=== PATIENT | male | born 1995 | race Hispanic/Latino ===

== ENCOUNTER 2019-03-08 19:09 | Emergency (ER) | payer SELFPAY ==
[2019-03-08] MEDS ORDERED: LIDOCAINE 1% MPF 30 ML VIAL ONE (19:23)
[2019-03-08] MEDS ORDERED: HYDROCODONE/APAP 10/325 TAB ONE (19:27)
[2019-03-08] MEDS ORDERED: SMZ./TMP. 800/160 MG TABLET ONE (19:45)
--- NOTE | 2019-03-08 19:48 | ER ---
Nurse's Notes [facility] Name: Tirso Guerra Age: 23 yrs Sex: Male : 1995 Arrival Date: 03/08/2019 Time: 19:11 Bed 7 Private MD: Diagnosis: Abscess left buttock Presentation: 03/08 19:22 Presenting complaint: Patient states: Abscess to left buttock x 3 days; Unable to lay lp1 flat or sit due to pain. Transition of care: patient was not received from another setting of care. Onset of symptoms was March 08, 2019. Risk Assessment: Do you want to hurt yourself or someone else? Patient reports no desire to harm self or others. Initial Sepsis Screen: Does the patient meet any 2 criteria? No. Patient's initial sepsis screen is negative. Does the patient have a suspected source of infection? No. Patient's initial sepsis screen is negative. Care prior to arrival: None. 19:22 Method Of Arrival: Ambulatory lp1 19:22 Acuity: KI 4 lp1 Historical: - Allergies: 19:23 No Known Allergies; lp1 - Home Meds: 19:23 None [Active]; lp1 - PMHx: 19:23 None; lp1 - PSHx: 19:23 None; lp1 - Immunization history:: Adult Immunizations up to date. - Social history:: Smoking status: Patient/guardian denies using tobacco. - Ebola Screening: : No symptoms or risks identified at this time. Screenin:23 Abuse screen: Denies threats or abuse. Denies injuries from another. Nutritional lp1 screening: No deficits noted. Tuberculosis screening: No symptoms or risk factors identified. Fall Risk None identified. Assessment: 19:29 General: Appears in no apparent distress. uncomfortable, Behavior is calm, cooperative, tl1 appropriate for age. Pain: Complains of pain in gluteal cleft Quality of pain is described as aching, pressure, sharp, tender, Pain began 2-3 days ago. Is continuous. Neuro: Level of Consciousness is awake, alert, obeys commands, Oriented to person, place, time, situation. Cardiovascular: No deficits noted. Denies chest pain. Respiratory: Airway is patent Trachea midline Respiratory effort is even, unlabored, Respiratory pattern is regular, symmetrical, Breath sounds are clear bilaterally. GI: Abdomen is non-distended, Bowel sounds present X 4 quads. Abd is soft and non tender X 4 quads. : No signs and/or symptoms were reported regarding the genitourinary system. EENT: No signs and/or symptoms were reported regarding the EENT system. Derm: Abscess located on gluteal cleft and left gluteus joseph is golf ball sized, has no drainage, is hot to touch, is raised, Reports pain that is 10 out of 10 on a pain scale. Vital Signs: 19:23 BP 115 / 60; Pulse 107; Resp 18; Temp 98.5(O); Pulse Ox 98% on R/A; Weight 113.4 kg; lp1 Height 5 ft. 7 in. (170.18 cm); Pain 10/10; 19:52 BP 150 / 98; Pulse 94; Resp 17; Temp 98.5; Pulse Ox 98% ; Pain 6/10; tl1 19:23 Body Mass Index 39.16 (113.40 kg, 170.18 cm) lp1 ED Course: 19:11 Patient arrived in ED. mr 19:18 Ezra Ordonez MD is Attending Physician. pkl 19:23 Triage completed. lp1 19:23 Arm band placed on left wrist. lp1 19:25 Patient has correct armband on for positive identification. lp1 19:29 Melyssa Friend, MAURICIO is Primary Nurse. tl1 19:33 Assist provider with I \T\ D: of an abscess on left perirectal area Set up I\T\D tray. tl 1 Performed by Ezra Ordonez MD Culture sent to lab. Wound packed. iodoform gauze, Dressing with 4X4s, tape Patient tolerated well. 19:34 Patient did not have IV access during this emergency room visit. tl1 19:45 Diony Dodge MD is Referral Physician. pkl Administered Medications: 19:29 Drug: [place] 10 mg-325 mg 1 tabs Route: PO; tl1 19:54 Follow up: Response: No adverse reaction; Medication administered at discharge.; RASS: tl1 Alert and Calm (0) 19:46 Drug: Bactrim (160 mg-800 mg (DS) 1 tablet Route: PO; tl1 19:53 Follow up: Response: No adverse reaction; Medication administered at discharge. tl1 Outcome: 19:46 Discharge ordered by . pkl 19:53 Discharged to home ambulatory, with family. tl1 19:53 Condition: stable 19:53 Discharge instructions given to patient, family, Instructed on discharge instructions, follow up and referral plans. medication usage, wound care, Demonstrated understanding of instructions, follow-up care, medications, wound care, Prescriptions given X 2. 19:54 Patient left the ED. tl1 Signatures: Ezra Ordonez MD MD pkl RajeshPenelope Johanne Robertson RN RN lp1 Melyssa Friend RN RN tl1 Corrections: (The following items were deleted from the chart) 19:24 19:22 Presenting complaint: Patient states: Abscess to top of buttocks x 3 days; Unable lp1 to lay flat or sit due to pain lp1
--- NOTE | 2019-03-08 19:48 | EDPHYS ---
Physician Documentation [facility] Name: Tirso Guerra Age: 23 yrs Sex: Male : 1995 Arrival Date: 03/08/2019 Time: 19:11 Bed 7 Private MD: ED Physician Ezra Ordonez HPI: 03/08 19:27 This 23 yrs old Male presents to ER via Ambulatory with complaints of Abscess. pkl 19:27 Description: The affected area is large, approximately 4 cm(s), fluctuant, tense. pkl Onset: The symptoms/episode began/occurred 3 day(s) ago. Associated signs and symptoms: The patient has no apparent associated signs or symptoms. Historical: - Allergies: 19:23 No Known Allergies; lp1 - Home Meds: 19:23 None [Active]; lp1 - PMHx: 19:23 None; lp1 - PSHx: 19:23 None; lp1 - Immunization history:: Adult Immunizations up to date. - Social history:: Smoking status: Patient/guardian denies using tobacco. - Ebola Screening: : No symptoms or risks identified at this time. ROS: 19:27 Eyes: Negative for injury, pain, redness, and discharge, ENT: Negative for injury, pkl pain, and discharge, Neck: Negative for injury, pain, and swelling, Cardiovascular: Negative for chest pain, palpitations, and edema, Respiratory: Negative for shortness of breath, cough, wheezing, and pleuritic chest pain, Abdomen/GI: Negative for abdominal pain, nausea, vomiting, diarrhea, and constipation, Back: Negative for injury and pain, : Negative for injury, bleeding, discharge, and swelling, MS/Extremity: Negative for injury and deformity. 19:27 Skin: Positive for abscess, of the left buttock. 19:27 Neuro: Negative for altered mental status. Exam: 19:27 Head/Face: Normocephalic, atraumatic. Eyes: Pupils equal round and reactive to light, pkl extra-ocular motions intact. Lids and lashes normal. Conjunctiva and sclera are non-icteric and not injected. Cornea within normal limits. Periorbital areas with no swelling, redness, or edema. ENT: Nares patent. No nasal discharge, no septal abnormalities noted. Tympanic membranes are normal and external auditory canals are clear. Oropharynx with no redness, swelling, or masses, exudates, or evidence of obstruction, uvula midline. Mucous membranes moist. Neck: Trachea midline, no thyromegaly or masses palpated, and no cervical lymphadenopathy. Supple, full range of motion without nuchal rigidity, or vertebral point tenderness. No Meningismus. Chest/axilla: Normal chest wall appearance and motion. Nontender with no deformity. No lesions are appreciated. Cardiovascular: Regular rate and rhythm with a normal S1 and S2. No gallops, murmurs, or rubs. Normal PMI, no JVD. No pulse deficits. Respiratory: Lungs have equal breath sounds bilaterally, clear to auscultation and percussion. No rales, rhonchi or wheezes noted. No increased work of breathing, no retractions or nasal flaring. Abdomen/GI: Soft, non-tender, with normal bowel sounds. No distension or tympany. No guarding or rebound. No evidence of tenderness throughout. Back: No spinal tenderness. No costovertebral tenderness. Full range of motion. MS/ Extremity: Pulses equal, no cyanosis. Neurovascular intact. Full, normal range of motion. Neuro: Awake and alert, GCS 15, oriented to person, place, time, and situation. Cranial nerves II-XII grossly intact. Motor strength 5/5 in all extremities. Sensory grossly intact. Cerebellar exam normal. Normal gait. 19:27 Skin: abscess, that is large, approximately 4 cm(s), of the left buttock, with fluctuance, that is moderate. Vital Signs: 19:23 BP 115 / 60; Pulse 107; Resp 18; Temp 98.5(O); Pulse Ox 98% on R/A; Weight 113.4 kg; lp1 Height 5 ft. 7 in. (170.18 cm); Pain 10/10; 19:52 BP 150 / 98; Pulse 94; Resp 17; Temp 98.5; Pulse Ox 98% ; Pain 6/10; tl1 19:23 Body Mass Index 39.16 (113.40 kg, 170.18 cm) lp1 Procedures: 19:43 I \T\ D: Incision and drainage was performed for an abscess of the left buttock Prepped pkl with Betadine, Anesthetized with 5 ml's 1% Lidocaine. Incised with #11 blade. Drained large amount purulent fluid. Packed with iodoform gauze, Dressing: sterile 4x4 gauze, the patient tolerated the procedure well. MDM: 19:18 Patient medically screened. pkl 19:43 Data reviewed: vital signs, nurses notes. ED course: Advised to follow up with Dr. mónica Dodge ( Surgeon ) in 2 days. Patient understood instruction. 03/08 19:26 Order name: Wound Culture pk 03/08 19:33 Order name: Incision \T\ Drainage Setup; Complete Time: 19:33 tl1 Administered Medications: 19:29 Drug: [place] 10 mg-325 mg 1 tabs Route: PO; tl1 19:54 Follow up: Response: No adverse reaction; Medication administered at discharge.; RASS: tl1 Alert and Calm (0) 19:46 Drug: Bactrim (160 mg-800 mg (DS) 1 tablet Route: PO; tl1 19:53 Follow up: Response: No adverse reaction; Medication administered at discharge. tl1 Disposition: 03/08/19 19:46 Discharged to Home. Impression: Abscess left buttock. - Condition is Stable. - Prescriptions for Ultram 50 mg Oral Tablet - take 1 tablet by ORAL route every 8 hours As needed; 12 tablet. Bactrim DS 800- 160 mg Oral Tablet - take 1 tablet by ORAL route every 12 hours for 7 days; 14 tablet. - Medication Reconciliation Form, Thank You Letter, Antibiotic Education, Prescription Opioid Use, Work release form form. - Follow up: Diony Dodge MD; When: 2 - 3 days; Reason: Re-evaluation by your physician. - Problem is new. - Symptoms have improved. Signatures: Dispatcher [employer] EDPA Ezra Ordonez MD MD pkl Johanne Robertson, RN RN lp1 Melyssa Friend, RN RN tl1 Corrections: (The following items were deleted from the chart) 19:54 19:46 03/08/2019 19:46 Discharged to Home. Impression: Abscess left buttock. Condition tl1 is Stable. Forms are Medication Reconciliation Form, Thank You Letter, Antibiotic Education, Prescription Opioid Use. Follow up: Diony Dodge; When: 2 - 3 days; Reason: Re-evaluation by your physician. Problem is new. Symptoms have improved. pkl
== END 2019-03-08 19:54 | disposition home or self-care (01) ==
LOC: ER 19:09
PROC: 0J990ZZ Drainage of Buttock Subcutaneous Tissue and Fascia, Open Approach (ICD-10-PCS; principal; 2019-03-08)
DX: L02.31 Cutaneous abscess of buttock (principal)
CPT/HCPCS: 87070; 87205; 99284

== ENCOUNTER 2023-04-07 15:09 | Emergency (ER) | payer SELFPAY ==
--- NOTE | 2023-04-07 15:40 | ER ---
Nurse's Notes [facility] Name: Tirso Guerra Age: 27 yrs Sex: Male : 1995 Arrival Date: 04/07/2023 Time: 15:09 Bed 11 Private MD: Diagnosis: Cellulitis of right upper limb Presentation: 04/07 15:26 Chief complaint: Patient states: "I thought I got fiber glass in my hand on Wednesday so I iw tried to cut it out but was unsuccessful. This cyst developed on my right hand since . It looks swollen now and like there is pus in it. I went to an ER and they gave me a tetanus shot and Amoxicillin.". Coronavirus screen: Vaccine status: Patient reports being unvaccinated. Ebola Screen: No symptoms or risks identified at this time. Initial Sepsis Screen: Does the patient meet any 2 criteria? No. Patient's initial sepsis screen is negative. Does the patient have a suspected source of infection? No. Patient's initial sepsis screen is negative. Risk Assessment: Do you want to hurt yourself or someone else? Patient reports no desire to harm self or others. Onset of symptoms was April 07, 2023. 15:26 Method Of Arrival: Ambulatory iw 15:26 Acuity: KI 4 iw Historical: - Allergies: 15:28 No Known Allergies; iw - Home Meds: 15:28 None [Active]; iw - PMHx: 15:28 None; iw - PSHx: 15:28 None; iw - Immunization history:: Adult Immunizations up to date. - Social history:: Smoking status: Patient denies any tobacco usage or history of. Screenin:32 [facility] ED Fall Risk Assessment (Adult) History of falling in the last 3 months, mb9 including since admission No falls in past 3 months (0 pts) Confusion or Disorientation No (0 pts) Intoxicated or Sedated No (0 pts) Impaired Gait No (0 pts) Mobility Assist Device Used No (0 pt) Altered Elimination No (0 pt) Score/Fall Risk Level 0 - 2 = Low Risk Oriented to surroundings, Maintained a safe environment, Educated pt \\T\\ family on fall prevention, incl call for assistance when getting out of bed. Abuse screen: Denies threats or abuse. Nutritional screening: No deficits noted. Tuberculosis screening: No symptoms or risk factors identified. Assessment: 15:31 General: Appears in no apparent distress. Behavior is calm, cooperative. Pain: mb9 Complains of pain in right hand Pain does not radiate. Pain currently is 8 out of 10 on a pain scale. Quality of pain is described as aching, throbbing, Is continuous. Neuro: Abreu Agitation-Sedation Scale (RASS): 0 - Alert and Calm Level of Consciousness is awake, alert, obeys commands, Oriented to person, place, time, situation, Appropriate for age. Cardiovascular: Patient's skin is warm and dry. Respiratory: Airway is patent Respiratory effort is even, unlabored, Respiratory pattern is regular, symmetrical, Breath sounds are clear bilaterally. GI: Abdomen is round non-distended, Bowel sounds present X 4 quads. Patient currently denies nausea, vomiting. : No signs and/or symptoms were reported regarding the genitourinary system. EENT: No signs and/or symptoms were reported regarding the EENT system. Derm: Skin is pink, warm \\T\\ dry. Abscess located on right hand is dime sized, has no drainage, is red, is raised. Musculoskeletal: Range of motion: intact in all extremities. Vital Signs: 15:26 BP 119 / 83; Pulse 71; Resp 18; Temp 98.7; Pulse Ox 100% ; Weight 113.4 kg; Height 5 iw ft. 7 in. ; Pain 8/10; 15:26 Body Mass Index 39.16 (113.40 kg, 170.18 cm) iw 15:26 Pain Scale: Adult iw ED Course: 15:12 Patient arrived in ED. im 15:14 Francisco Valerio DO is Attending Physician. ms3 15:28 Triage completed. iw 15:28 Arm band placed on. iw 15:31 Penelope Bowen, MAURICIO is Primary Nurse. mb9 15:32 Bed in low position. Call light in reach. Side rails up X 1. Client placed on mb9 continuous cardiac and pulse oximetry monitoring. NIBP monitoring applied. 15:37 Jesus Arauz MD is Referral Physician. ms3 15:47 No provider procedures requiring assistance completed. Patient did not have IV access mb9 during this emergency room visit. Administered Medications: No medications were administered Medication: 15:32 VIS not applicable for this client. mb9 Outcome: 15:39 Discharge ordered by MD. ms3 15:47 Discharged to home ambulatory, mb9 15:47 Condition: stable 15:47 Discharge instructions given to patient, Instructed on discharge instructions, follow up and referral plans. Demonstrated understanding of instructions, follow-up care, medications, Prescriptions given X 1, 15:47 Patient left the ED. mb9 Signatures: Elizabeth Burden, RN RN iw Francisco Valerio DO DO ms3 Penelope Bowen RN RN mb9 Erika Mcdonald Corrections: (The following items were deleted from the chart) 15: 15:26 Chief complaint: Patient states: "I thought I got fiber glass in my hand on wednesday so I tried to cut it out but was unsuccessful. This cyst developed on my right hand since . It looks swollen now and like there is pus in it." iw
--- NOTE | 2023-04-07 15:40 | EDPHYS ---
Physician Documentation [facility] Name: Tirso Guerra Age: 27 yrs Sex: Male : 1995 Arrival Date: 04/07/2023 Time: 15:09 Bed 11 Private MD: ED Physician Francisco Valerio HPI: 04/07 15:49 This 27 yrs old Male presents to ER via Ambulatory with complaints of Hand ms3 Pain, Hand Swelling. 15:49 27-year-old male with no past medical history presents for right hand swelling. 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 Patient states since that time his symptoms have become worse. Patient states his right hand pain is an 8/10 and described as throbbing. Patient states he was seen in an emergency department in [place] and given a prescription which she did not fill. Patient states he took 1 amoxicillin at 6 AM this morning that he received from a friend.. Historical: - Allergies: 15:28 No Known Allergies; iw - Home Meds: 15:28 None [Active]; iw - PMHx: 15:28 None; iw - PSHx: 15:28 None; iw - Immunization history:: Adult Immunizations up to date. - Social history:: Smoking status: Patient denies any tobacco usage or history of. ROS: 15:49 Constitutional: Negative for fever, and chills. Neck: Negative for injury, pain, and ms3 swelling, Cardiovascular: Negative for chest pain, and palpitations. Respiratory: Negative for shortness of breath, cough, wheezing, and pleuritic chest pain, Abdomen/GI: Negative for abdominal pain, nausea, vomiting, diarrhea, and constipation, MS/Extremity: Negative for injury and deformity, 15:49 Skin: Positive for cellulitis, 15:49 All other systems are negative, Exam: 15:49 Constitutional: This is a well developed, well nourished patient who is awake, alert, ms3 and in no acute distress. Head/Face: Normocephalic, atraumatic. Neck: Trachea midline, no cervical lymphadenopathy. Supple, full range of motion without nuchal rigidity, or vertebral point tenderness. No Meningismus. Chest/axilla: Normal chest wall appearance and motion. Nontender with no deformity. Cardiovascular: Regular rate and rhythm with a normal S1 and S2. No gallops, murmurs, or rubs. Normal PMI, no JVD. No pulse deficits. Respiratory: Lungs have equal breath sounds bilaterally, clear to auscultation and percussion. No rales, rhonchi or wheezes noted. No increased work of breathing, no retractions or nasal flaring. Abdomen/GI: Soft, non-tender, with normal bowel sounds. No distension or tympany. No guarding or rebound. No evidence of tenderness throughout. 15:49 Skin: cellulitis, that is moderate, on the right hand, Vital Signs: 15:26 BP 119 / 83; Pulse 71; Resp 18; Temp 98.7; Pulse Ox 100% ; Weight 113.4 kg; Height 5 iw ft. 7 in. ; Pain 8/10; 15:26 Body Mass Index 39.16 (113.40 kg, 170.18 cm) iw 15:26 Pain Scale: Adult iw MDM: 15:37 Patient medically screened. ms3 15:49 Differential diagnosis: Cellulitis. Data reviewed: vital signs, nurses notes, and as a ms3 result, I will discharge patient. Counseling: I had a detailed discussion with the patient and/or guardian regarding the historical points, exam findings, and any diagnostic results supporting the discharge/admit diagnosis, the need for outpatient follow up, to return to the emergency department if symptoms worsen or persist or if there are any questions or concerns that arise at home. ED course: Discussed necessity to fill prescription with patient. Patient to follow-up with Dr. Arauz in 2 to 3 days. Patient understands agrees with plan. All questions were answered. Return precautions discussed include worsening symptoms, or any other concerns. Administered Medications: No medications were administered Disposition Summary: 04/07/23 15:39 Discharge Ordered Notes: Location: Home ms3 Condition: Stable ms3 Diagnosis - Cellulitis of right upper limb ms3 Followup: ms3 - With: Jesus Arauz MD - When: 2 - 3 days - Reason: Recheck today's complaints Discharge Instructions: - Discharge Summary Sheet ms3 - Cellulitis, Adult ms3 Forms: - Medication Reconciliation Form ms3 - Thank You Letter ms3 - Antibiotic Education ms3 - Prescription Opioid Use ms3 - Patient Portal Instructions ms3 - Leadership Thank You Letter ms3 Prescriptions: - Doxycycline Hyclate 100 mg Oral Tablet - take 1 tablet ORAL route every 12 hours; 20 tablet; Refills: 0, Product ms3 Selection Permitted Signatures: Elizabeth Burden RN RN iw Francisco Valerio DO DO ms3
[2023-04-07 15:52] VITALS: BP 119/83; TEMP 98.7; O2SAT 100
== END 2023-04-07 15:47 | disposition home or self-care (01) ==
LOC: ER 15:09
DX: L03.113 Cellulitis of right upper limb (principal)
CPT/HCPCS: 99283

== ENCOUNTER 2024-09-30 18:57 | Observation (INO) | payer SELFPAY ==
[2024-09-30 19:51] LABS: Absolute Eosinophils 0.3 K/uL (0-0.5); Absolute Lymphocytes (CBC) 1.5 K/uL (0.7-4.9); Absolute Monocytes 0.5 K/uL (0.1-1.3); Absolute Neutrophil 8.7 K/uL (1.8-8.0); Basophils % 0.3 % (0-1.3); Eosinophils % 2.3 % (0-4.4); Hematocrit 47.1 % (39.6-49.0); Hemoglobin 15.6 g/dL (13.6-17.9); Lymphocytes % 13.8 % (15.3-44.8); MCH 28.5 pg (27.0-35.0); MCHC 33.1 g/dL (32.0-36.0); MCV 86.2 fL (80-100); MPV 8.7 fL (7.6-11.3); Monocytes % 4.2 % (3.3-12.3); Neutrophils % 79.4 % (41.7-73.7); Platelets 210 thou/uL (152-406); RBC Red Blood Cell Count 5.46 M/uL (4.33-5.43); Red Cell Distribution Width 14.2 % (12.1-15.2)
[2024-09-30] MEDS ORDERED: FOLIC ACID 5 MG/ML VIAL ONE (19:52)
[2024-09-30] MEDS ORDERED: THIAMINE 200 MG/2 ML INJ ONE (19:52)
[2024-09-30] MEDS ORDERED: MULTIVITAMINS 10 ML VIAL (INJ) IV ONE (19:52)
[2024-09-30] MEDS ORDERED: NA CHLORIDE 0.9% 2,000 ML ONE (19:53)
[2024-09-30 19:59] LABS: PT Prothrombin Time 10.5 SECONDS (10-13.0); PTT, Activated Partial Thromb 25.7 SECONDS (27.2-37.4); Protime INR 0.92
[2024-09-30 20:09] LABS: ALT/SGPT 54 U/L (16-61); Albumin 3.5 g/dL (3.4-5.0); Alkaline Phosphatase 74 U/L (45-117); Anion Gap 8.8 mEq/L (5.0-15.0); BUN Blood Urea Nitrogen 12 mg/dL (7-18); Bicarbonate 29 mEq/L (21-32); Bilirubin Direct 0.2 mg/dL (0-0.2); Bilirubin Indirect, Calculated 0.8 mg/dL (0.2-0.8); Globulin 3.4 g/dL (2.3-3.5); Glomerular Filtration Rate 77 ml/min (=/>90); Glucose Level 155 mg/dL (74-106); Protein, Total 6.9 g/dL (6.4-8.2); Sodium Level 140 mEq/L (136-145)
[2024-09-30 20:15] LABS: AST/SGOT 40 U/L (15-37); Potassium 3.8 mEq/L (3.5-5.1)
[2024-09-30] MEDS ORDERED: LEVALBUTEROL 1.25 MG/3 ML NEB ONE (20:43)
[2024-09-30] MEDS ORDERED: NA CHLORIDE 0.9% 100 ML ONE (20:44)
[2024-09-30] MEDS ORDERED: NALOXONE HCL 2 MG/2 ML VIAL ONE (20:44)
--- NOTE | 2024-09-30 20:49 | RAD REPORT ---
EXAMINATION: ONE VIEW CHEST XR CLINICAL INDICATION: Male, 29 years old.,CHEST PAIN TECHNIQUE: Frontal chest projection is submitted. Examination is limited by patient positioning and t echnique. COMPARISON: No prior exam. FINDINGS: The lungs are grossly clear although suboptimal inspiratory effort somewhat limits evaluation. No pn eumothorax or sizable effusion. The heart is normal in size. Mediastinal contours are unremarkable. IMPRESSION: No acute intrathoracic abnormalities.
--- NOTE | 2024-09-30 22:14 | EDPHYS ---
Physician Documentation [facility] Name: Tirso Guerra Age: 29 yrs Sex: Male : 1995 Arrival Date: 09/30/2024 Time: 18:57 Bed 23 Private MD: ED Physician Art Moran HPI: 09/30 19:20 This 29 yrs old Male presents to ER via EMS with complaints of Drug Abuse. abby 19:20 The patient has shortness of breath with light activity. Onset: The symptoms/episode abby began/occurred just prior to arrival. Duration: The symptoms are continuous, but are steadily getting better. The patient's shortness of breath has no apparent modifying factors. took percocet, went unresponsive. Associated signs and symptoms: Pertinent positives: non-productive cough. Severity of symptoms: At their worst the symptoms were moderate incapacitating in the emergency department the symptoms have improved moderately. It is unknown whether or not the patient has had similar symptoms in the past. Historical: - Allergies: 19:08 No Known Allergies; cp4 - Immunization history:: Adult Immunizations up to date. - Infectious Disease History:: Denies. - Social history:: Smoking status: unknown. ROS: 19:20 Constitutional: Negative for fever, chills, and weight loss, Eyes: Negative for injury, abby pain, redness, and discharge, ENT: Negative for injury, pain, and discharge, Neck: Negative for injury, pain, and swelling, Cardiovascular: Negative for chest pain, palpitations, and edema, Abdomen/GI: Negative for abdominal pain, nausea, vomiting, diarrhea, and constipation, Back: Negative for injury and pain, : Negative for injury, bleeding, discharge, and swelling, MS/Extremity: Negative for injury and deformity, Skin: Negative for injury, rash, and discoloration, Neuro: Negative for headache, weakness, numbness, tingling, and seizure, Psych: Negative for depression, anxiety, suicide ideation, homicidal ideation, and hallucinations, Allergy/Immunology: Negative for hives, rash, and allergies, Endocrine: Negative for neck swelling, polydipsia, polyuria, polyphagia, and marked weight changes, Hematologic/Lymphatic: Negative for swollen nodes, abnormal bleeding, and unusual bruising, 19:20 Respiratory: Positive for cough, shortness of breath, respiratory arrest, Exam: 19:23 Constitutional: This is a well developed, well nourished patient who is awake, alert, abby and in no acute distress. Head/Face: Normocephalic, atraumatic. Eyes: Pupils equal round and reactive to light, extra-ocular motions intact. Lids and lashes normal. Conjunctiva and sclera are non-icteric and not injected. Cornea within normal limits. Periorbital areas with no swelling, redness, or edema. ENT: Nares patent. No nasal discharge, no septal abnormalities noted. Tympanic membranes are normal and external auditory canals are clear. Oropharynx with no redness, swelling, or masses, exudates, or evidence of obstruction, uvula midline. Mucous membranes moist. Neck: Trachea midline, no thyromegaly or masses palpated, and no cervical lymphadenopathy. Supple, full range of motion without nuchal rigidity, or vertebral point tenderness. No Meningismus. Chest/axilla: Normal chest wall appearance and motion. Nontender with no deformity. No lesions are appreciated. Cardiovascular: Regular rate and rhythm with a normal S1 and S2. No gallops, murmurs, or rubs. Normal PMI, no JVD. No pulse deficits. Respiratory: Lungs have equal breath sounds bilaterally, clear to auscultation and percussion. No rales, rhonchi or wheezes noted. No increased work of breathing, no retractions or nasal flaring. Abdomen/GI: Soft, non-tender, with normal bowel sounds. No distension or tympany. No guarding or rebound. No evidence of tenderness throughout. Back: No spinal tenderness. No costovertebral tenderness. Full range of motion. Skin: Warm, dry with normal turgor. Normal color with no rashes, no lesions, and no evidence of cellulitis. MS/ Extremity: Pulses equal, no cyanosis. Neurovascular intact. Full, normal range of motion., bilateral aka Neuro: Awake and alert, GCS 15, oriented to person, place, time, and situation. Cranial nerves II-XII grossly intact. Motor strength 5/5 in all extremities. Sensory grossly intact. Cerebellar exam normal. Normal gait. Psych: Awake, alert, with orientation to person, place and time. Behavior, mood, and affect are within normal limits. 19:23 Musculoskeletal/extremity: DVT Exam: No signs of deep vein thrombosis. no pain, no swelling, no tenderness, negative Homans' sign noted on exam, no appreciated bluish discoloration, no erythema, no increased warmth, 20:45 ECG was reviewed by the Attending Physician. [facility] Vital Signs: 19:20 BP 142 / 84; Pulse 106; Resp 20; Temp 98.4; Pulse Ox 92% on 3 lpm NC; Weight 113.4 kg; cp4 Height 5 ft. 7 in. ; Pain 0/10; 20:30 BP 119 / 79; Pulse 93; Resp 18; Pulse Ox 96% on 3 lpm NC; cp4 21:12 BP 116 / 78; Pulse 92; Resp 20; Pulse Ox 98% on 3 lpm NC; cp4 22:41 BP 118 / 80; Pulse 94; Resp 18; Pulse Ox 93% on 3 lpm NC; cp4 23:46 BP 125 / 75; Pulse 89; Resp 18; Pulse Ox 97% ; cp4 19:20 Body Mass Index 39.16 (113.40 kg, 170.18 cm) cp4 19:20 Pain Scale: Adult cp4 MDM: 19:10 Medical Screening Exam initiated [facility] 19:24 Differential diagnosis: asthma, Bronchitis CHF exacerbation, Myocardial Infarction abby pneumonia. Antibiotic administration: Not indicated. Differential Diagnosis altered mental status, sepsis, flu. Immunization status:. Data reviewed: vital signs, nurses notes, lab test result(s), EKG, radiologic studies, plain films. I considered the following discharge prescriptions or medication management in the emergency department Medications were administered in the Emergency Department. See MAR. Independent interpretation of the following test(s) in the Emergency Department EKG: See my EKG interpretation above. 09/30 19:11 Order name: Acetaminophen; Complete Time: 20:22 [facility] 09/30 19:11 Order name: Basic Metabolic Panel; Complete Time: 20:22 [facility] 09/30 19:11 Order name: CBC with Diff; Complete Time: 20:10 [facility] 09/30 19:11 Order name: ETOH Level; Complete Time: 20:10 [facility] 09/30 19:11 Order name: Hepatic Function; Complete Time: 20:22 [facility] 09/30 19:11 Order name: PT-INR; Complete Time: 20:10 [facility] 09/30 19:11 Order name: Ptt, Activated; Complete Time: 20:10 [facility] 09/30 19:11 Order name: Salicylate; Complete Time: 20:40 [facility] 09/30 19:11 Order name: Urinalysis w/ reflexes; Complete Time: 03:45 [facility] 09/30 19:11 Order name: Urine Drug Screen; Complete Time: 03:45 [facility] 09/30 23:54 Order name: Urinalysis w/ reflexes EDMS 09/30 19:11 Order name: Chest Single View XRAY; Complete Time: 22:08 [facility] 09/30 19:11 Order name: EKG - Nurse/Tech; Complete Time: 20:37 [facility] 09/30 19:11 Order name: IV Saline Lock; Complete Time: 19:46 [facility] 09/30 19:11 Order name: Labs collected and sent; Complete Time: 19:46 [facility] 09/30 19:11 Order name: Suicide Screening ([place]); Complete Time: 19:46 [facility] EC:45 Rate is 96 beats/min. Rhythm is regular. QRS [place] is Normal. [place] interval is normal. QRS abby interval is normal. QT interval is normal. No Q waves. T waves are Normal. No ST changes noted. Clinical impression: NSR w/ Non-specific ST/T Changes and No evidence of ischemia. Interpreted by me. Reviewed by me. Administered Medications: 19:59 Drug: NS 0.9% IV 1000 ml IV at 1000 ml once; to be given as a bolus over 60 minutes cp4 Route: IV; Rate: 1000 ml; Site: left hand; 10/01 04:50 Follow up: IV Status: Completed infusion cp4 09/30 19:59 Drug: Banana Bag - (Multivitamin IV 1 amp, NS 0.9% IV 1000 ml, Thiamine IV 100 mg, cp4 foLIC Acid IVPB 1 mg) IV at 500 ml/hr once Route: IV; Rate: 500 ml/hr; Site: left hand; 10/01 04:51 Follow up: IV Status: Completed infusion cp4 09/30 20:55 Drug: NARcan IVP 5 mg IVP at 1 mg/hr once Route: IVP; Rate: 1 mg/hr; Site: left hand; cp4 10/01 04:50 Follow up: Response: No adverse reaction cp4 09/30 20:55 Drug: Levalbuterol Inhalation 2.5 mg Inhalation once Route: Inhalation; cp4 Disposition Summary: 09/30/24 22:14 Hospitalization Ordered Notes: Hospitalization Status: Observation [facility] Provider: Patrice Mg cha Condition: Fair abby Problem: new abby Symptoms: have improved abby Bed/Room Type: Standard abby Location: [facility] ER HOLD(09/30/24 22:20) vk Room Assignment: ERHOLD-(09/30/24 22:20) vk Diagnosis - Adverse effect of other narcotics abby - Acute respiratory failure - secondary to narcotics abby - Adverse effect of other drugs, medicaments and biological substances abby - Abuse of other non-psychoactive substances abby - Cocaine abuse abby Discharge Instructions: - Discharge Summary Sheet abby - Substance Use Disorder abby - Acute Respiratory Failure, Adult abby - Substance Use Disorder and Mental Illness abby - Supporting Someone With Substance Use Disorder abby Forms: - Medication Reconciliation Form abby - SBAR form abby - Leadership Thank You Letter abby - Work release form sp Prescriptions: - Narcan 4 mg/actuation Nasal spray, non-aerosol - spray 1 spray INTRANASAL route every 2 minutes spray 1 dose into ONE nostril; abby alternate nostrils w each dose until help arrives; 2 unit; Refills: 0, Product Selection Permitted Signatures: Dispatcher [employer] EDMS Art Moran MD MD cha Potter, Christina cp4 Kruse, Vivian vk Corrections: (The following items were deleted from the chart) 19:12 19:12 ACETAMINOPHEN+C.LAB.BRZ ordered. EDMS EDMS 19:12 19:12 BASIC METABOLIC PANEL+C.LAB.BRZ ordered. EDMS EDMS 19:12 19:12 CBC+H.LAB.BRZ ordered. EDMS EDMS 19:12 19:12 ETHANOL+C.LAB.BRZ ordered. EDMS EDMS 19:12 19:12 HEPATIC FUNCTION+C.LAB.BRZ ordered. EDMS EDMS 19:12 19:12 PROTIME (+INR)+COAG.LAB.BRZ ordered. EDMS EDMS 19:12 19:12 PTT, ACTIVATED+COAG.LAB.BRZ ordered. EDMS EDMS 19:12 19:12 SALICYLATE+C.LAB.BRZ ordered. EDMS EDMS 19:12 19:12 Urinalysis+U.LAB.BRZ ordered. EDMS EDMS 19:12 19:12 URINE DRUG SCREEN+UC.LAB.BRZ ordered. EDMS EDMS 19:12 19:12 Chest Single View+RAD.RAD.BRZ ordered. EDMS EDMS :14 Telemetry/MedSurg (observation) abby vk 22:14 [facility] vk 10/01 04:49 09/30 20:40 IS+RC.RAD.BRZ ordered. EDMS EDMS
--- NOTE | 2024-09-30 22:14 | ER ---
Nurse's Notes [facility] Name: Tirso Guerra Age: 29 yrs Sex: Male : 1995 Arrival Date: 09/30/2024 Time: 18:57 Bed 23 Private MD: Diagnosis: Adverse effect of other narcotics;Acute respiratory failure-secondary to narcotics;Adverse effect of other drugs, medicaments and biological substances;Abuse of other non-psychoactive substances;Cocaine abuse Presentation: 09/30 19:05 Chief complaint: EMS states: took 2 percocets. Family called 911 patient was given 8mg cp4 of narcan by PD Patient breathing on own. IV left hand. Nothing given by EMS. Coronavirus screen: Client denies travel out of the [place] in the last 14 days. At this time, the client does not indicate any symptoms associated with coronavirus-19. Ebola Screen: Patient negative for fever greater than or equal to 101.5 degrees Fahrenheit, and additional compatible Ebola Virus Disease symptoms Patient denies exposure to infectious person. Patient denies travel to an Ebola-affected area in the 21 days before illness onset. No symptoms or risks identified at this time. Initial Sepsis Screen:. Risk Assessment: Do you want to hurt yourself or someone else? Patient reports no desire to harm self or others. Onset of symptoms is unknown. 19:05 Method Of Arrival: EMS: [facility] cp4 19:05 Acuity: KI 2 cp4 19:05 Acuity: KI 2 cp4 10/01 04:50 Initial Sepsis Screen: Does the patient meet any 2 criteria? HR > 90 bpm. No. Patient's cp4 initial sepsis screen is negative. Does the patient have a suspected source of infection? No. Patient's initial sepsis screen is negative. Triage Assessment: 09/30 19:08 General: Appears in no apparent distress. uncomfortable, Behavior is calm, cooperative, cp4 appropriate for age. Pain: Denies pain. EENT: No signs and/or symptoms were reported regarding the EENT system. Neuro: Level of Consciousness is awake, alert, obeys commands, Oriented to person, place, time, situation. Historical: - Allergies: 19:08 No Known Allergies; cp4 - Immunization history:: Adult Immunizations up to date. - Infectious Disease History:: Denies. - Social history:: Smoking status: unknown. Screenin/30 04:49 [facility] ED Fall Risk Assessment (Adult) History of falling in the last 3 months, cp4 including since admission No falls in past 3 months (0 pts) Confusion or Disorientation No (0 pts) Intoxicated or Sedated No (0 pts) Impaired Gait No (0 pts) Mobility Assist Device Used No (0 pt) Altered Elimination No (0 pt) Score/Fall Risk Level 0 - 2 = Low Risk Oriented to surroundings, Maintained a safe environment, Assessed \\T\\ reinforced patient's understanding of fall precautions, Hourly rounding (assess needs \\T\\ fall precautionary measures) done. Abuse screen: Denies threats or abuse. Denies injuries from another. Nutritional screening: No deficits noted. Tuberculosis screening: No symptoms or risk factors identified. Assessment: 09/30 20:18 General: brother Jair [phone]. lg3 20:18 General: sister Evette Guerra [phone]. lg3 22:41 Reassessment: Patient appears in no apparent distress at this time. No changes from cp4 previously documented assessment. Patient and/or family updated on plan of care and expected duration. Pain level reassessed. Patient is alert, oriented x 3, equal unlabored respirations, skin warm/dry/pink. Overdose: 10/01 04:50 [place] Suicide Severity Screening: "In the past month, have you wished you were cp4 or wished you could go to sleep and not wake up?" Patient responds "no." "In the past month, have you actually had any thoughts of killing yourself?" Patient responds "no." "In your lifetime, have you ever done anything, started to do anything, or prepared to do anything to end your life?" Patient responds "no.". 07:15 [place] Suicide Severity Screening: "In the past month, have you wished you were db or wished you could go to sleep and not wake up?" Patient responds "no." "In the past month, have you actually had any thoughts of killing yourself?" Patient responds "no.". Vital Signs: 09/30 19:20 BP 142 / 84; Pulse 106; Resp 20; Temp 98.4; Pulse Ox 92% on 3 lpm NC; Weight 113.4 kg; cp4 Height 5 ft. 7 in. ; Pain 0/10; 20:30 BP 119 / 79; Pulse 93; Resp 18; Pulse Ox 96% on 3 lpm NC; cp4 21:12 BP 116 / 78; Pulse 92; Resp 20; Pulse Ox 98% on 3 lpm NC; cp4 22:41 BP 118 / 80; Pulse 94; Resp 18; Pulse Ox 93% on 3 lpm NC; cp4 23:46 BP 125 / 75; Pulse 89; Resp 18; Pulse Ox 97% ; cp4 19:20 Body Mass Index 39.16 (113.40 kg, 170.18 cm) cp4 19:20 Pain Scale: Adult cp4 ED Course: 19:04 Patient arrived in ED. aa5 19:05 Blanca Sharp is Primary Nurse. cp4 19:08 Triage completed. cp4 19:08 Arm band placed on right wrist. Patient placed in an exam room, on a stretcher. cp4 19:09 Art Moran MD is Attending Physician. [facility] 19:46 Chest Single View XRAY In Process Unspecified. EDMS 22:09 Patrice Mg MD is Hospitalizing Provider. [facility] 10/01 04:48 Urinalysis w/ reflexes Sent. cp4 04:49 Bed in low position. Call light in reach. Side rails up X2. Provided Education on: 4 admission. 04:49 No provider procedures requiring assistance completed. Patient admitted, IV remains in cp4 place. Administered Medications: 09/30 19:59 Drug: NS 0.9% IV 1000 ml IV at 1000 ml once; to be given as a bolus over 60 minutes cp4 Route: IV; Rate: 1000 ml; Site: left hand; 10/01 04:50 Follow up: IV Status: Completed infusion [facility] 09/30 19:59 Drug: Banana Bag - (Multivitamin IV 1 amp, NS 0.9% IV 1000 ml, Thiamine IV 100 mg, cp4 foLIC Acid IVPB 1 mg) IV at 500 ml/hr once Route: IV; Rate: 500 ml/hr; Site: left hand; 10/01 04:51 Follow up: IV Status: Completed infusion [facility] 09/30 20:55 Drug: NARcan IVP 5 mg IVP at 1 mg/hr once Route: IVP; Rate: 1 mg/hr; Site: left hand; [facility] 10/01 04:50 Follow up: Response: No adverse reaction cp4 09/30 20:55 Drug: Levalbuterol Inhalation 2.5 mg Inhalation once Route: Inhalation; cp4 Medication: 10/01 04:49 VIS not applicable for this client. cp4 Outcome: 09/30 22:14 Decision to Hospitalize by Provider. abby 10/01 04:49 Admitted to ER Hold. Please see [facility] for further documentation. cp4 Condition: stable Instructed on the need for admit, 09:27 Patient left the ED. db Signatures: Dispatcher [employer] EDMS Art Moran MD MD cha Calderon, Audri, RN RN [email or web address] Marzena Orozco RN RN [email or web address] Carmela Miller RN RN Blanca Ramos cp4 Corrections: (The following items were deleted from the chart) 09/30 21:12 20:30 BP 116 / 78; Pulse 91bpm; Resp 20bpm; Pulse Ox 100% 5 lpm Nasal Cannula; cp4 cp4
[2024-09-30] MEDS: NA CHLORIDE 0.9% 1,000 ML IV SCH (23:45)
--- NOTE | 2024-09-30 23:51 | P.HP ---
Certification for Inpatient Patient admitted to: Observation With expected LOS: <2 Midnights Practitioner: I am a practitioner with admitting privileges, knowledge of patient current condition, hospital course, and medical plan of care. Services: Services provided to patient in accordance with Admission requirements found in Title 42 Section 412.3 of the Code of Federal Regulations Patient History Date of Service: 09/30/24 Reason for admission: overdose History of Present Illness: 29-year-old male presented to the ER with shortness of breath. Apparently patient was at a constitution party and took unknown number of Percocet described as 1 or 2 he became unresponsive. He responded to Narcan. He presents to the ER. In the emergency room they placed him on a Narcan drip. Observation was requested. He currently is awake answers questions although he states he does not remember what happened nor where or what he is ingested. He does report he has taken Percocet in the past. A urine drug screen is currently pending. Allergies No Known Allergies Allergy (Unverified 06/19/17 14:19) Review of Systems 10-point ROS is otherwise unremarkable Physical Examination - Physical Exam General: Oriented x3, Other (lethargic) HEENT: Atraumatic, Normocephalic Respiratory: Clear to auscultation bilaterally, Normal air movement Cardiovascular: Regular rate/rhythm, Normal S1 S2 Gastrointestinal: Soft and benign, Non-distended Musculoskeletal: No swelling, No contractures Integumentary: No rashes, No breakdown - Studies Laboratory Data (last 24 hrs) 09/30/24 09/30/24 09/30/24 19:42 19:42 19:42 WBC 10.90 Hgb 15.6 Hct 47.1 Plt Count 210 PT 10.5 INR 0.92 APTT 25.7 L Sodium 140 Potassium 3.8 BUN 12 Creatinine 1.27 Glucose 155 H Total Bilirubin 1.0 AST 40 H ALT 54 Alkaline Phosphatase 74 Assessment and Plan - Problems (Diagnosis) (1) Overdose Current Visit: Yes Status: Acute - Plan 29-year-old male presents with overdose received Narcan in the field currently on Narcan drip Overdose -- Reported unknown number of Percocet, urine drug seen currently pending, unclear if there was fentanyl laced. Currently on Narcan drip. He is arousable. He has been placed on oxygen although his sats have been stable on room air. His vitals are stable. His labs have been reviewed. Anticipate discharge in the morning. If he leaves the emergency room he should be placed in the ICU for monitoring closely tonight - Advance Directives Does patient have a Living Will: No Does patient have a Durable POA for Healthcare: No
[2024-10-01 00:58] VITALS: BMI 37.5
[2024-10-01 02:09] LABS: Specific Gravity 1.013 (1.005-1.030); Urine Bilirubin NEGATIVE (Negative); Urine Blood Negative (Negative); Urine Clarity Clear (Clear); Urine Color Light-Yellow (Yellow); Urine Glucose 1+ (Negative); Urine Ketones NEGATIVE (Negative); Urine Microscopic Reflex YN NO UMIC; Urine Nitrite NEGATIVE (Negative); Urine Protein NEGATIVE (Negative); Urine Urobilinogen Normal (Normal)
[2024-10-01 02:20] LABS: Barbiturates NEGATIVE (NEGATIVE); Benzodiazepines POSITIVE (NEGATIVE); Cocaine POSITIVE (NEGATIVE); METHAMPHETAM NEGATIVE (NEGATIVE); Methadone NEGATIVE (NEGATIVE); Opiates NEGATIVE (NEGATIVE); Phencyclidine NEGATIVE (NEGATIVE); THC Cannibis POSITIVE (NEGATIVE)
[2024-10-01 05:09] VITALS: TEMP 98.4
[2024-10-01 08:02] VITALS: BP 125/77
--- NOTE | 2024-10-01 09:07 | P.DS ---
Admission Date: 09/30/24 Discharge Date: 10/01/24 Disposition: ROUTINE DISCHARGE Discharge Condition: GOOD Reason for Admission: overdose Brief History of Present Illness: 29yo M, PMH: none Patient presented to the ER with shortness of breath. Apparently patient was at a green party and took unknown number of Percocet described as 1 or 2 he became unresponsive. He responded to Narcan. He presents to the ER. In the emergency room they placed him on a Narcan drip. Observation was requested. He currently is awake answers questions although he states he does not remember what happened nor where or what he is ingested. He does report he has taken Percocet in the past. A urine drug screen is currently pending. Hospital Course: Problem List: Drug overdose, improved; s/p narcan Polysubstance abuse Physician discharge instructions: Patient presented to the ED with drug overdose after he was found to be unresponsive at a green party after taking unknown amount of percocets but states "1 to 2." Patient responded well to 8mg of narcan given by police department. He received IV fluids and banana bag in the ED Chest xray was negative for any acute findings. Labwork on admission was unremarkable. Tox screen was positive for Benzos, cocaine, and THC. He does not recall events leading up to hospitalization but does report that hes taken percocets before in the past without issues. He denied any desire to harm self or others. Patient denied suicidal ideation. Patient was monitored overnight, feeling better close to his normal self, breathing okay on room air, and was deemed stable for discharge. Recommend cessation of poly-substances to reduce further recurrent episodes. Medications: none Follow up: PCP 3-5 days Please call to schedule / confirm appointments Physical Exam: GEN: Alert, oriented, NAD CV: Regular rate and rhythm, no edema Pulm: Nonlabored respirations on room air, clear bilaterally ABD: soft, nontender, nondistended Neuro: Normal speech, normal affect Vital Signs/Physical Exam: Temp Pulse Resp BP Pulse Ox 98.4 F 92 H 20 125/77 98 10/01/24 08:00 10/01/24 08:00 10/01/24 08:00 10/01/24 08:00 10/01/24 08:00 Laboratory Data at Discharge: WBC 10.90 thou/uL (4.3-10.9) 09/30/24 19:42 Hgb 15.6 g/dL (13.6-17.9) 09/30/24 19:42 Hct 47.1 % (39.6-49.0) 09/30/24 19:42 Plt Count 210 thou/uL (152-406) 09/30/24 19:42 PT 10.5 SECONDS (10-13.0) 09/30/24 19:42 INR 0.92 09/30/24 19:42 APTT 25.7 SECONDS (27.2-37.4) L 09/30/24 19:42 Sodium 140 mEq/L (136-145) 09/30/24 19:42 Potassium 3.8 mEq/L (3.5-5.1) 09/30/24 19:42 BUN 12 mg/dL (7-18) 09/30/24 19:42 Creatinine 1.27 mg/dL (0.70-1.30) 09/30/24 19:42 Glucose 155 mg/dL (74-106) H 09/30/24 19:42 Total Bilirubin 1.0 mg/dL (0.2-1.0) 09/30/24 19:42 AST 40 U/L (15-37) H 09/30/24 19:42 ALT 54 U/L (16-61) 09/30/24 19:42 Alkaline Phosphatase 74 U/L (45-117) 09/30/24 19:42 Physician Discharge Instructions: Physician discharge instructions: Patient presented to the ED with drug overdose after he was found to be unresponsive at a green party after taking unknown amount of percocets but states "1 to 2." Patient responded well to 8mg of narcan given by police department. He received IV fluids and banana bag in the ED Chest xray was negative for any acute findings. Labwork on admission was unremarkable. Tox screen was postiive for Benzos, cocaine, and THC. He does not recall events leading up to hospitalization but does report that hes taken percocets before in the past without issues. He denied any desire to harm self or others. Patient denied suicidal ideation. Patient was monitored overnight, feeling better close to his normal self, breathing okay on room air, and was deemed stable for discharge. Recommend cessation of poly-substances to reduce further recurrent episodes. Medications: none Follow up: PCP 3-5 days Please call to schedule / confirm appointments Followup: NONE,NONE [Primary Care Provider] - Time spent managing pt's care (in minutes): 45
[2024-10-01 09:26] VITALS: O2SAT 96
--- NOTE | 2024-10-02 11:21 | EKG ---
Test Date: 2024-09-30 Test Time: 19:32:05 Director Behavioral Health: BOGDAN MEASUREMENT RESULTS: Intervals: Rate: 104 MS: 154 QRSD: 86 QT: 330 QTc: 433 Fate: P: 49 MS: 154 QRS: 77 T: 32 INTERPRETIVE STATEMENTS: Sinus tachycardia Otherwise normal ECG Compared to ECG 09/30/2024 19:26:13 Sinus rhythm no longer present Right-axis deviation no longer present Electronically Signed On 10-02-24 11:18:18 CDT by Jose Kelly
--- NOTE | 2024-10-02 11:22 | EKG ---
Test Date: 2024-09-30 Test Time: 19:26:13 Safety Relief Valve Technician: BOGDAN MEASUREMENT RESULTS: Intervals: Rate: 96 [place]: 150 QRSD: 82 QT: 324 QTc: 409 [place]: P: 25 [place]: 150 QRS: 94 T: 24 INTERPRETIVE STATEMENTS: Normal sinus rhythm Rightward axis Borderline ECG Compared to ECG 09/30/2024 19:23:49 Right-axis deviation now present Sinus tachycardia no longer present Electronically Signed On 10-02-24 11:18:20 CDT by Jose Kelly
--- NOTE | 2024-10-02 11:22 | EKG ---
Test Date: 2024-09-30 Test Time: 19:23:49 Coupon Collection Clerk: BOGDAN MEASUREMENT RESULTS: Intervals: Rate: 104 [place]: 154 QRSD: 84 QT: 330 QTc: 433 [place]: P: 50 [place]: 154 QRS: 77 T: 29 INTERPRETIVE STATEMENTS: Sinus tachycardia Otherwise normal ECG No previous ECG available for comparison Electronically Signed On 10-02-24 11:18:21 CDT by Jose Kelly
== END 2024-10-01 09:27 | disposition home or self-care (01) ==
LOC: ER 18:57 → ERHOLD 23:50
PROVIDERS: ADMIT Internal Medicine; ATTEND Hospitalist
DX: T40.2X1A Poisoning by other opioids, accidental (unintentional), initial encounter (principal); T40.5X1A Poisoning by cocaine, accidental (unintentional), initial encounter; T40.711A Poisoning by cannabis, accidental (unintentional), initial encounter; Y92.89 Other specified places as the place of occurrence of the external cause; J96.00 Acute respiratory failure, unspecified whether with hypoxia or hypercapnia
CPT/HCPCS: 36415; 71045; 80048; 80076; 80143; 80179; 80307; 81003; 82077; 85025; 85610; 85730; 93005; G0378; J2310; J3411; J7030; J7614